=== PATIENT | female | born 1970 | race Caucasian/White ===

== ENCOUNTER 2017-02-10 15:47 | Emergency (ER) | payer OTHER ==
--- NOTE | ~2017-02-10 | CT116 ---
[facility] A Service of [facility] & [facility] RADIOLOGY TEXT RESULTS PATIENT: JESSA GREENBERG LOCATION: [facility] : 66 UNIT #: [id number] AGE: [address]: Ayo Sanchez MD SEX: F ORDER DR: [id number] [facility] [address] [place], [place] [address] [id number] E MR#: [id number] #: [id number] NAME: JESSA GREENBERG. : 1970 SEX: F STUDY DATE/TIME: 02/10/2017 16:05 UNIT: [facility] ROOM: STUDY DESCRIPTION: CT Soft Tissue Neck Wo Cont Attending Physician: Ayo Sanchez M.D. Ordering Physician: Ayo Sanchez M.D. Primary Care Physician: Ibrahima Bobby M.D. MEDICAL IMAGING REPORT This report is preliminary unless electronic signature is present EXAM CT soft tissue neck without IV contrast COMPARISON None INDICATIONS 46-year-old female with dysphagia and dry throat for 3 days. Swelling around the throat. FINDINGS Axial CT imaging of the neck was performed. Coronal and sagittal reformats were constructed. This CT exam was performed with one or more of the following radiation dose reduction techniques: Automatic exposure control, adjustment of mA and/or kV according to patient size, and iterative reconstruction. Lack of IV contrast limits evaluation of adenopathy, vasculature and viscera. Thyroid gland appears heterogeneous but does appear to have several discrete nodules, 2 of which are seen on the right measuring up to 0.7 and 1 cm and 1 on the left measuring up to 0.4 mm, and a separate on the left measuring up to approximately 0.6 cm. There may be a separate right nodule measuring up to 6 mm. Airways are widely patent. Evaluation for tonsillar abscess is limited by lack of IV contrast. No definite abscess is seen within the neck. Calcified granuloma in the right upper lobe. No bulky adenopathy. No acute fractures or suspicious osseous lesions. No osseous destruction. IMPRESSION 1. Evaluation for soft tissue abnormality is limited by lack of IV contrast. No evidence of abscess or inflammatory change within the neck. No acute fracture, dislocation or evidence of osteomyelitis of the cervical spine. [facility]. [facility] A Service of [facility] & [facility] RADIOLOGY TEXT RESULTS PATIENT: JESSA GREENBERG LOCATION: [facility] : 66 UNIT #: [id number] AGE: [address]: Ayo Sanchez MD SEX: F ORDER DR: 2. Airways are widely patent. 3. Multinodular thyroid gland. Outpatient thyroid ultrasound is recommended for further characterization. Dictated by... Vernon Galvan M.D. THIS IS AN ELECTRONICALLY VERIFIED REPORT Vernon Galvan M.D. at 02/14/2017 8:31 AM CANDE/grey TD: 02/10/2017 21:33 JOB #: [id number] MEDICAL IMAGING REPORT Page 1 of 1 COPY
[~2017-02-10 15:47] MED LIST: BACTRIM DS TABL1 TA1 PO; FLEXERIL PO; IBUPROFEN800 MG PO; KEFLEX500 M1 PO; LEVOXYL0.137 MG; METHADOSE5 MG PO; MOBIC PO; NEURONTIN; NO MEDICATIONS; PERCOCET; PROVENTIL2 MG; VOLTAREN75 MG PO
[2017-02-10 16:07] LABS: BASOPHIL% 0.2 % (0-2.5); EOSINOPHIL# 0.1 X10e3 (0-0.7); EOSINOPHIL% 0.7 % (0.0-7.0); HEMATOCRIT 36.1 % (35.0-45.0); HEMOGLOBIN 11.8 gm/dL (12.0-16.0); LYMPHOCYTE# 1.9 X10e3 (1.0-3.5); LYMPHOCYTE% 25.6 % (17.0-45.0); MEAN CORPUSCULAR HEMOGLOBIN 29.2 PG (28-34); MEAN CORPUSCULAR HGB CONC 32.8 g/dL (30-36); MEAN PLATELET VOLUME 6.9 FL (6.5-11.5); MONOCYTE# 0.6 X10e3 (0-1.0); MONOCYTE% 8.7 % (3.0-12.0); NEUTROPHIL# 4.7 X10e3 (1.5-7.1); NEUTROPHIL% 64.8 % (40-75); PLATELET COUNT 535 X10e3 (140-420); RED BLOOD COUNT 4.05 X10e (3.90-5.30); RED CELL DISTRIBUTION WIDTH 14.1 % (11.0-15.5); WHITE BLOOD COUNT 7.3 X10e3 (4.0-10.5)
[2017-02-10 16:09] LABS: DIFF IND NO
[2017-02-10 16:30] LABS: BUN/CREATININE RATIO 24.28; CALCIUM SERUM 9.3 mg/dL (8.4-10.2); CREATININE SERUM 0.7 mg/dL (0.6-1.4); GLOM FILT RATE Estimated 102.5 mL/min (>60); POTASSIUM 3.2 mmol/L (3.5-5.1)
== END 2017-02-10 18:35 | disposition home or self-care (01) ==
LOC: CED 15:47
PROVIDERS: Emergency Medicine
DX: K11.5 Sialolithiasis (principal)
CPT/HCPCS: 36415; 70490; 80048; 85025; 99284